=== PATIENT | male | born 1935 | race Asian ===

== ENCOUNTER 2019-02-02 08:24 | Emergency (ER) | payer OTHER, MEDICARE ==
[2019-02-02 09:37] LABS: ADD MAN DIFF? NO
[2019-02-02 09:38] LABS: BASOPHILS % 0.7 % (0.0-2.0); EOSINOPHILS % 16.7 % (0.0-7.0); HEMATOCRIT 43.6 % (42.0-52.0); HEMOGLOBIN 14.3 g/dl (14.0-18.0); LYMPHOCYTES # 2.1 10^3/ul (0.8-2.9); LYMPHOCYTES % 37.3 % (15.0-51.0); MEAN CORPUSCULAR HEMOGLOBIN 32.9 pg (29.0-33.0); MEAN CORPUSCULAR HGB CONC 32.8 g/dl (32.0-37.0); MEAN CORPUSCULAR VOLUME 100.2 fl (82.0-101.0); MEAN PLATELET VOLUME 9.2 fl (7.4-10.4); MONOCYTE # 0.4 10^3/ul (0.3-0.9); NEUTROPHIL # 2.2 10^3/ul (1.6-7.5); NEUTROPHILS % 38.1 % (39.0-77.0); PLATELET COUNT 154 10^3/UL (140-415); RED BLOOD COUNT 4.35 10^6/ul (4.70-6.10); RED CELL DISTRIBUTION WIDTH 14.1 % (11.5-14.5)
[2019-02-02 09:38] LABS: WHITE BLOOD COUNT 5.7 10^3/ul (4.8-10.8)
[2019-02-02] MEDS: OXYMETAZOLINE 0.05% 15 ML NAS SPRAY NASAL (09:49)
[2019-02-02] MEDS: SOD CHLORIDE 0.9% 500 ML IV (09:50)
[2019-02-02] MEDS: KETOROLAC 15 MG INJ IV (09:52)
[2019-02-02 09:58] LABS: ALANINE AMINOTRANSFERASE 21 IU/L (13-69); ALBUMIN 3.9 g/dl (3.3-4.9); ALBUMIN/GLOBULIN RATIO 1.02; ALKALINE PHOSPHATASE 59 IU/L (42-121); ANION GAP 5 (5-13); ASPARTATE AMINO TRANSFERASE 25 IU/L (15-46); BLOOD UREA NITROGEN 18 mg/dl (7-20); CALCIUM 9.5 mg/dl (8.4-10.2); CARBON DIOXIDE 32 mmol/L (21-31); CHLORIDE 102 mmol/L (97-110); CREATINE KINASE 42 IU/L (23-200); CREATININE 0.92 mg/dl (0.61-1.24); GLUCOSE 107 mg/dl (70-220); POTASSIUM 4.4 mmol/L (3.5-5.1); SODIUM 139 mmol/L (135-144); TOTAL PROTEIN 7.7 g/dl (6.1-8.1)
[2019-02-02 10:05] LABS: INR 0.95; PROTIME 12.8 Sec (11.9-14.9)
[2019-02-02 10:06] LABS: PARTIAL THROMBOPLASTIN TIME 31.7 Sec (23.0-35.0)
[2019-02-02] MEDS: ALBUTEROL 0.083% (NEB) 2.5 MG/3 ML AMP NEB ×2 (10:08→12:45)
[2019-02-02] MEDS: IPRATROPIUM (NEB) 0.5 MG/2.5 ML AMP NEB ×2 (10:08→12:45)
[2019-02-02 10:10] LABS: B-TYPE NATRIURETIC PEPTIDE 1780 PG/ML (0-450); CK INDEX 1.8; CK-MB 0.76 ng/ml (0.0-2.4); TROPONIN-I < 0.012 ng/ml (0.000-0.120)
[2019-02-02] MEDS: NICARDipine HCL 30 MG CAPSULE PO (12:52)
== END 2019-02-02 13:31 | disposition home or self-care (01) ==
LOC: E/R 08:24
DX: J01.40 Acute pansinusitis, unspecified (principal); M79.18 Myalgia, other site; I10 Essential (primary) hypertension; R40.2142 Coma scale, eyes open, spontaneous, at arrival to emergency department; R40.2362 Coma scale, best motor response, obeys commands, at arrival to emergency department; R40.2252 Coma scale, best verbal response, oriented, at arrival to emergency department; R07.9 Chest pain, unspecified
CPT/HCPCS: 36415; 70486; 71045; 80053; 82550; 82553; 83880; 84484; 85025; 85610; 85730; 93005; 94640; 94664; 96374; 99285-25